=== PATIENT | male | born 1980 | race Caucasian/White ===

== ENCOUNTER 2016-11-22 23:23 | Emergency (ER) | payer MEDICAID, BC ==
[~2016-11-22 23:23] MED LIST: ATORVASTATIN CA10 MG PO; COMBIVIR TABLET1 TAB; DICLOFENAC PO; FLEXERIL PO; KEFLEX; MULTI VITAMIN1 EACH PO; NATALCARE PLUS; NEXIUM; NORCO1 TAB 10/3 PO; PREZCOBIX 8001 EACH PO; PROTONIX; RANITIDINE HCL300 MG PO; TRUVADA TABLET1 TA1 PO; VIRAMUNE200 MG
== END 2016-11-23 06:06 | disposition home or self-care (01) ==
LOC: CED 23:23
DX: S39.012A Strain of muscle, fascia and tendon of lower back, initial encounter (principal); X50.0XXA Overexertion from strenuous movement or load, initial encounter; Y92.9 Unspecified place or not applicable
CPT/HCPCS: 99283